=== PATIENT | male | born 1950 | race Caucasian/White ===

== ENCOUNTER → 2021-08-12 | Outpatient (CLI) | payer MEDICARE, OTHER ==
[~2021-08-12] MED LIST: ALEVE PO; ASPI81TA45 PO; ASPI81TA86 PO; CELE100C PO; CELEBREX PO; COUM1TAB17 PO; COUM2.5T17 PO; LISI20TA33 PO; PERC5TAB12 PO; PERCOCET PO; SENO8.6T5 PO; SIMV40TA20 PO; TYLE325T5 PO
== END ==
LOC: M RAD 11:29
PROVIDERS: ATTEND Physician Assistant Medical
DX: M47.817 Spondylosis without myelopathy or radiculopathy, lumbosacral region (principal); M54.50 Low back pain, unspecified

== ENCOUNTER → 2021-10-02 | Outpatient (CLI) | payer MEDICARE, OTHER ==
[~2021-10-02] MED LIST changes: +ASPE4PAD TOP; +ATOR1TAB21; +METH-1165 PO; +NAPR-885; +PRED20TA PO; +TELM1TAB17; +TRAM50TA2 PO
== END ==
LOC: M PLAIMG 08:57
PROVIDERS: ATTEND Family Medicine
DX: M51.36 Other intervertebral disc degeneration, lumbar region (principal)

== ENCOUNTER 2021-10-03 10:08 | Emergency (ER) | payer MEDICARE, OTHER ==
[~2021-10-03] VITALS: Ht 177.8 cm; Wt 109.1 kg
[~2021-10-03 10:08] MED LIST changes: -ASPE4PAD TOP; -ATOR1TAB21; -METH-1165 PO; -NAPR-885; -PRED20TA PO; -TELM1TAB17; -TRAM50TA2 PO
[2021-10-03] MEDS ORDERED: NAPR-885 (10:22)
[2021-10-03] MEDS ORDERED: ATOR1TAB21 (10:22)
[2021-10-03] MEDS ORDERED: TELM1TAB17 (10:22)
[2021-10-03] MEDS ORDERED: methylPREDNISolone 125MG 2ML VIAL IV ONE (12:30)
[2021-10-03] MEDS ORDERED: KETOROLAC 30 MG/ML 1ML VIAL IV ONE (12:30)
[2021-10-03] MEDS ORDERED: NS 1,000 ML IV ONE (12:30)
[2021-10-03] MEDS ORDERED: LIDOCAINE 5% (LIDODERM) PATCH TD ONE (12:30)
[2021-10-03] MEDS ORDERED: diazePAM 10MG/2ML SYRINGE (J3360 PER 5MG) IV ONE ×2 (12:30→14:35)
[2021-10-03 12:49] LABS: BASO % 0.4 % (0.0-1.0); EOS # 0.3 10^3/uL (0.0-0.5); EOS % 3.7 % (0.0-3.0); HEMATOCRIT 40.2 % (42.0-52.0); HEMOGLOBIN 13.8 g/dl (13.5-17.5); LYMPH # 0.9 10^3/uL (1.5-5.0); LYMPH % 11.2 % (24.0-44.0); MEAN CORPUSCULAR HEMOGLOBIN 31.7 pg (27.0-33.0); MEAN CORPUSCULAR HGB CONC 34.3 g/dl (32.0-36.5); MEAN CORPUSCULAR VOLUME 92.4 fl (80.0-96.0); MONO # 0.6 10^3/uL (0.0-0.8); NEUTROPHILS # 5.9 10^3/uL (1.5-8.5); NEUTROPHILS % 76.4 % (36.0-66.0); PLATELET COUNT, AUTOMATED 217 10^3/uL (150-450); RED BLOOD COUNT 4.35 10^6/uL (4.30-6.10); WHITE BLOOD COUNT 7.7 10^3/uL (4.0-10.0)
[2021-10-03 13:13] LABS: BLOOD UREA NITROGEN 23 MG/DL (7-18); CALCIUM LEVEL 9.1 MG/DL (8.8-10.2); CARBON DIOXIDE LEVEL 31 MEQ/L (21-32); CHLORIDE LEVEL 108 MEQ/L (98-107); CREATININE FOR GFR 0.95 MG/DL (0.70-1.30); GLOMERULAR FILTRATION RATE > 60.0 (>42); GLUCOSE, FASTING 91 MG/DL (70-100); POTASSIUM SERUM 3.6 MEQ/L (3.5-5.1); SODIUM LEVEL 142 MEQ/L (136-145)
[2021-10-03] MEDS ORDERED: methocarbamoL 750 MG TAB PO ONE (16:40)
[2021-10-03] MEDS ORDERED: ASPE4PAD TOP (16:40)
[2021-10-03] MEDS ORDERED: METH-1165 PO (16:40)
[2021-10-03] MEDS ORDERED: TRAM50TA2 PO (16:40)
[2021-10-03] MEDS ORDERED: PRED20TA PO (16:41)
[2021-10-03 16:53] VITALS: BP 186/87
[2021-10-04] MEDS ORDERED: **NOTE PATIENT COMMENT** MISC XX ONE (01:00)
== END 2021-10-03 16:53 | disposition home or self-care (01) ==
LOC: M ED 10:08
DX: M54.16 Radiculopathy, lumbar region (principal); I10 Essential (primary) hypertension; Z79.899 Other long term (current) drug therapy; Z79.82 Long term (current) use of aspirin; F17.210 Nicotine dependence, cigarettes, uncomplicated
CPT/HCPCS: 73030; 73060; 73564; 80048; 85025; 93971; 96361; 96374; 96375; 99284; J1885; J2930; J3360

== ENCOUNTER → 2021-10-09 | Outpatient (CLI) | payer MEDICARE, OTHER ==
[~2021-10-09] MED LIST changes: +ASPE4PAD TOP; +ATOR1TAB21; +METH-1165 PO; +NAPR-885; +PRED20TA PO; +TELM1TAB17; +TRAM50TA2 PO
[2021-10-09 14:05] LABS: BASO % 0.4 % (0.0-1.0); EOS # 0.2 10^3/uL (0.0-0.5); EOS % 2.7 % (0.0-3.0); HEMATOCRIT 41.8 % (42.0-52.0); HEMOGLOBIN 14.3 g/dl (13.5-17.5); LYMPH % 11.8 % (24.0-44.0); MEAN CORPUSCULAR HGB CONC 34.2 g/dl (32.0-36.5); MEAN CORPUSCULAR VOLUME 93.5 fl (80.0-96.0); MONO # 0.6 10^3/uL (0.0-0.8); MONO % 7.5 % (2.0-8.0); NEUTROPHILS # 6.2 10^3/uL (1.5-8.5); NEUTROPHILS % 77.1 % (36.0-66.0); PLATELET COUNT, AUTOMATED 240 10^3/uL (150-450); RED BLOOD COUNT 4.47 10^6/uL (4.30-6.10)
[2021-10-09 14:31] LABS: HEMOGLOBIN A1c 5.1 %
[2021-10-09 14:33] LABS: ALBUMIN 3.9 GM/DL (3.2-5.2); ALT/SGPT 35 U/L (12-78); BILIRUBIN,TOTAL 1.7 MG/DL (0.2-1.0); BLOOD UREA NITROGEN 19 MG/DL (7-18); CALCIUM LEVEL 9.7 MG/DL (8.8-10.2); CARBON DIOXIDE LEVEL 32 MEQ/L (21-32); CHLORIDE LEVEL 104 MEQ/L (98-107); CREATININE FOR GFR 0.85 MG/DL (0.70-1.30); GLOMERULAR FILTRATION RATE > 60.0 (>42); GLUCOSE, FASTING 91 MG/DL (70-100); POTASSIUM SERUM 4.3 MEQ/L (3.5-5.1); SODIUM LEVEL 140 MEQ/L (136-145); TOTAL PROTEIN 6.8 GM/DL (6.4-8.2)
[2021-10-09 14:42] LABS: TOTAL 25(OH) VITAMIN D 16.2 NG/ML (30.0-100.0)
== END ==
LOC: M LAB 12:40
PROVIDERS: ATTEND Orthopaedic Surgery
DX: M48.062 Spinal stenosis, lumbar region with neurogenic claudication (principal); Z79.899 Other long term (current) drug therapy

== ENCOUNTER → 2021-10-24 | Outpatient (CLI) | payer MEDICARE, OTHER ==
[~2021-10-24] MED LIST changes: +ATOR1TAB21 PO; +IBUP200C29 PO; +MICA80TA2 PO
== END ==
LOC: M LABSMTC 09:17
PROVIDERS: ATTEND Anesthesiology
DX: Z20.828 Contact with and (suspected) exposure to other viral communicable diseases (principal); Z11.59 Encounter for screening for other viral diseases

== ENCOUNTER 2021-10-29 06:05 | Day surgery (SDC) | payer MEDICARE, OTHER ==
[2021-10-29] VITALS (7 sets, daily range): BP systolic 133–144; BP diastolic 64–86; O2SAT 93
[~2021-10-29] VITALS: Ht 177.8 cm; Wt 107.5 kg
[~2021-10-29 06:05] MED LIST changes: +LIDOCAINE 1% MDV 20ML VIAL SQ PRN; +LR 1,000 ML IV ONE; +PREGABALIN 75 MG CAP(LYRICA) PO ONE; +ceFAZolin SOD 2 GM in IV 1 EA IV ONE; +oxyCODONE 5MG TAB PO ONE
[2021-10-29] MEDS ORDERED: THROMBIN SOLN 20,000 UNITS KIT As Ordered ONE (07:07)
[2021-10-29] MEDS ORDERED: TRANEXAMIC ACID 100 MG/ML 10ML VIAL As Ordered ONE (07:08)
[2021-10-29] MEDS ORDERED: BUPIVACAINE/EPIN 0.5% 30 ML VIAL As Ordered ONE (07:08)
[2021-10-29] MEDS ORDERED: BUPIVACAINE LIPOSOME/PF 1.3% 20ML VIAL (13.3MG/ML)(EXPAREL) As Ordered ONE (07:08)
[2021-10-29] MEDS ORDERED: VANCOMYCIN 1000MG/20ML VIAL As Ordered ONE (07:11)
[2021-10-29] MEDS ORDERED: propofoL 200 MG/20 ML VIAL As Ordered ONE (07:11)
[2021-10-29] MEDS ORDERED: LIDOCAINE 2% 100MG/5ML SDV (FOR ANES.) As Ordered ONE (07:11)
[2021-10-29] MEDS ORDERED: ROCURONIUM BROMIDE 50 MG/5 ML VIAL As Ordered ONE (07:11)
[2021-10-29] MEDS ORDERED: fentaNYL 250 MCG/5 ML INJECTION As Ordered ONE (07:12)
[2021-10-29] MEDS ORDERED: MIDAZOLAM INJ 2MG/2ML VIAL (J2250 PER 1MG) As Ordered ONE (07:12)
[2021-10-29 07:17] LABS: HEMOGLOBIN 13.9 g/dl (13.5-17.5); MEAN CORPUSCULAR HGB CONC 34.8 g/dl (32.0-36.5); MEAN CORPUSCULAR VOLUME 92.2 fl (80.0-96.0); PLATELET COUNT, AUTOMATED 245 10^3/uL (150-450); RED BLOOD COUNT 4.34 10^6/uL (4.30-6.10); WHITE BLOOD COUNT 7.7 10^3/uL (4.0-10.0)
[2021-10-29] MEDS ORDERED: BUPIVACAINE HCL 0.5% 10ML VIAL As Ordered ONE (07:28)
[2021-10-29] MEDS ORDERED: ONDANSETRON 4MG/2ML VIAL As Ordered ONE (09:40)
[2021-10-29] MEDS ORDERED: dexameTHASONE 4 MG/ML 1ML VIAL (J1100 PER 1MG) As Ordered ONE (09:40)
[2021-10-29] MEDS ORDERED: KETOROLAC 60MG 2ML VIAL As Ordered ONE (09:40)
[2021-10-29] MEDS ORDERED: ACETAMINOPHEN 1000MG 100ML IV BTL (OFIRMEV) (J0131 PER 10MG) As Ordered ONE (09:41)
[2021-10-29] MEDS ORDERED: SUGAMMADEX SODIUM 500 MG/5 ML VIAL (BRIDION) As Ordered ONE (09:53)
[2021-10-29] MEDS ORDERED: ACETAMINOPHEN TAB 650MG DOSE (2X325MG) PO PRN (10:25)
[2021-10-29] MEDS ORDERED: PERCOCET 5MG/325MG TAB PO PRN (10:25)
[2021-10-29] MEDS ORDERED: LACTULOSE 20 GM/30 ML SYRUP UD PO PRN (10:30)
[2021-10-29] MEDS ORDERED: MORPHINE 2 MG/ML 1ML VIAL IV PRN (10:30)
[2021-10-29] MEDS ORDERED: oxyCODONE 5MG TAB PO PRN (10:45)
[2021-10-29] MEDS ORDERED: MEPERIDINE INJ 25 MG/ML VIAL (J2175) IV PRN (10:45)
[2021-10-29] MEDS: LR 1,000 ML IV SCH ×2 (10:45→17:08)
[2021-10-29] MEDS ORDERED: fentaNYL 100 MCG/2 ML INJECTION IV PRN (10:45)
[2021-10-29] MEDS ORDERED: ONDANSETRON 4MG/2ML VIAL IV PRN (10:45)
[2021-10-29] MEDS ORDERED: LR 1,000 ML IV SCH (11:20)
[2021-10-29] MEDS: ceFAZolin SOD 2 GM in IV 1 EA IV SCH ×2 (17:09→23:43)
[2021-10-29] MEDS: CelecoXIB (CeleBREX) 100 MG CAP PO SCH (22:16)
[2021-10-30 02:00] VITALS: BP 144/69
[2021-10-30 06:00] VITALS: BP 143/69
[2021-10-30] MEDS: CelecoXIB (CeleBREX) 100 MG CAP PO SCH (08:49)
[2021-10-30] MEDS ORDERED: SENNA 8.6 MG TAB (SENOKOT) PO SCH (09:00)
[2021-10-30 10:00] VITALS: BP 115/72
[2021-10-30 14:00] VITALS: BP 155/66
[2021-10-30] MEDS ORDERED: LACT20EL PO (16:35)
[2021-10-30] MEDS ORDERED: SENN18TA PO (16:35)
[2021-10-30] MEDS ORDERED: ACET1TAB55 PO (16:35)
== END 2021-10-30 17:40 | disposition home or self-care (01) ==
LOC: M SDC 06:05 → M MS5PR 14:10 → M SDC 10-30 17:40
PROVIDERS: ATTEND Orthopaedic Surgery
DX: M48.062 Spinal stenosis, lumbar region with neurogenic claudication (principal); I10 Essential (primary) hypertension; E78.00 Pure hypercholesterolemia, unspecified; Z79.899 Other long term (current) drug therapy
CPT/HCPCS: 36415; 63030; 63035; 76000; 85027; 88304; 88331; 96365; 96366; 97116; 97161; 97530; C9290; J0131; J0690; J1100; J1885; J2250; J2405; J3010; J3370

== ENCOUNTER → 2022-03-22 | Outpatient (REF) | payer MEDICARE, OTHER ==
[~2022-03-22] MED LIST changes: +ACET1TAB55 PO; +LACT20EL PO; -LIDOCAINE 1% MDV 20ML VIAL SQ PRN; -LR 1,000 ML IV ONE; -PREGABALIN 75 MG CAP(LYRICA) PO ONE; +SENN18TA PO; -ceFAZolin SOD 2 GM in IV 1 EA IV ONE; -oxyCODONE 5MG TAB PO ONE
== END ==
LOC: M SFHCDERM 08:31
PROVIDERS: ATTEND Nurse Practitioner Family
DX: R21 Rash and other nonspecific skin eruption (principal)

== ENCOUNTER 2022-04-08 11:53 | Inpatient (IN) | payer MEDICARE, OTHER ==
[~2022-04-08] VITALS: Ht 177.8 cm; Wt 109.3 kg
[2022-04-08] MEDS ORDERED: RA A81CH3 PO (12:06)
[2022-04-08] MEDS ORDERED: CEFEPIME HCL 1 GM in D5W MINI-BAG PLUS 50 ML IV ONE (12:55)
[2022-04-08] MEDS ORDERED: VANCOMYCIN HCL 1,000 MG, VIAL MATE ADAPTER 1 EACH in NS 250 ML IV SCH (12:55)
[2022-04-08] MEDS ORDERED: NS 1,000 ML IV SCH (12:55)
[2022-04-08] MEDS ORDERED: methylPREDNISolone 125MG 2ML VIAL IV ONE ×2 (13:00→16:00)
[2022-04-08] MEDS ORDERED: VANCOMYCIN HCL 2,000 MG, VIAL MATE ADAPTER 1 EACH in NS 250 ML IV STA (13:14)
[2022-04-08] MEDS ORDERED: VANCOMYCIN HCL 1,000 MG, VIAL MATE ADAPTER 1 EACH in NS 250 ML IV ONE ×2 (13:30→14:30)
[2022-04-08 13:56] LABS: BASO % 0.4 % (0.0-1.0); EOS # 1.1 10^3/uL (0.0-0.5); EOS % 14.4 % (0.0-3.0); HEMATOCRIT 38.6 % (42.0-52.0); HEMOGLOBIN 12.2 g/dl (13.5-17.5); LYMPH # 0.6 10^3/uL (1.5-5.0); LYMPH % 8.5 % (24.0-44.0); MEAN CORPUSCULAR HGB CONC 31.6 g/dl (32.0-36.5); MEAN CORPUSCULAR VOLUME 98.2 fl (80.0-96.0); MONO # 0.9 10^3/uL (0.0-0.8); MONO % 12.8 % (2.0-8.0); NEUTROPHILS # 4.6 10^3/uL (1.5-8.5); NEUTROPHILS % 63.6 % (36.0-66.0); PLATELET COUNT, AUTOMATED 200 10^3/uL (150-450); RED BLOOD COUNT 3.93 10^6/uL (4.30-6.10); WHITE BLOOD COUNT 7.3 10^3/uL (4.0-10.0)
[2022-04-08] MEDS ORDERED: TELM1TAB17 PO (14:07)
[2022-04-08] MEDS ORDERED: ATOR1TAB21 PO (14:07)
[2022-04-08] MEDS ORDERED: ACET500T15 PO (14:07)
[2022-04-08] MEDS ORDERED: ASPI81TA26 PO (14:07)
[2022-04-08] MEDS ORDERED: HOME MED LIST COMPLETE! XX SCH (14:10)
[2022-04-08 14:27] LABS: ALBUMIN 2.1 GM/DL (3.2-5.2); ALT/SGPT 19 U/L (12-78); BILIRUBIN,DIRECT 0.3 MG/DL (0.0-0.2); BLOOD UREA NITROGEN 16 MG/DL (7-18); CALCIUM LEVEL 8.1 MG/DL (8.8-10.2); CARBON DIOXIDE LEVEL 21 MEQ/L (21-32); CHLORIDE LEVEL 107 MEQ/L (98-107); GLOMERULAR FILTRATION RATE > 60.0 (>42); GLUCOSE, FASTING 105 MG/DL (70-100); POTASSIUM SERUM 3.8 MEQ/L (3.5-5.1); SODIUM LEVEL 137 MEQ/L (136-145); TOTAL PROTEIN 4.8 GM/DL (6.4-8.2)
[2022-04-08] MEDS ORDERED: LIDOCAINE 1% MDV 20ML VIAL As Ordered ONE (15:27)
[2022-04-08] MEDS ORDERED: ACETAMINOPHEN TAB 650MG DOSE (2X325MG) PO PRN (15:30)
[2022-04-08] MEDS ORDERED: VANCOMYCIN HCL 750 MG, VIAL MATE ADAPTER 1 EACH in NS 250 ML IV SCH (15:40)
[2022-04-08] MEDS: ATORVASTATIN 20 MG TAB PO SCH (19:51)
[2022-04-08] MEDS: NS 1,000 ML IV SCH ×2 (20:20→22:39)
[2022-04-08 22:10] VITALS: BP 154/78
[2022-04-08] MEDS: VANCOMYCIN HCL 1,000 MG, VIAL MATE ADAPTER 1 EACH in D5W 250 ML IV SCH (22:57)
[2022-04-09] MEDS: NS 1,000 ML IV SCH (05:32)
[2022-04-09 06:00] VITALS: BP 150/70
[2022-04-09 06:08] LABS: HEMATOCRIT 36.5 % (42.0-52.0); HEMOGLOBIN 11.9 g/dl (13.5-17.5); MEAN CORPUSCULAR HEMOGLOBIN 30.7 pg (27.0-33.0); MEAN CORPUSCULAR HGB CONC 32.6 g/dl (32.0-36.5); MEAN CORPUSCULAR VOLUME 94.3 fl (80.0-96.0); PLATELET COUNT, AUTOMATED 227 10^3/uL (150-450); RED BLOOD COUNT 3.87 10^6/uL (4.30-6.10); WHITE BLOOD COUNT 4.3 10^3/uL (4.0-10.0)
[2022-04-09] MEDS: VANCOMYCIN HCL 1,000 MG, VIAL MATE ADAPTER 1 EACH in D5W 250 ML IV SCH ×3 (06:35→23:46)
[2022-04-09 06:44] LABS: ALT/SGPT 19 U/L (12-78); BILIRUBIN,TOTAL 0.5 MG/DL (0.2-1.0); BLOOD UREA NITROGEN 16 MG/DL (7-18); CARBON DIOXIDE LEVEL 26 MEQ/L (21-32); CHLORIDE LEVEL 105 MEQ/L (98-107); CREATININE FOR GFR 0.74 MG/DL (0.70-1.30); GLOMERULAR FILTRATION RATE > 60.0 (>42); GLUCOSE, FASTING 139 MG/DL (70-100); MAGNESIUM LEVEL 2.2 MG/DL (1.8-2.4); POTASSIUM SERUM 3.8 MEQ/L (3.5-5.1); SODIUM LEVEL 138 MEQ/L (136-145)
[2022-04-09] MEDS: TELMISARTAN 20 MG TAB PO SCH (08:36)
[2022-04-09] MEDS: ASPIRIN 81MG ENTERIC TABLET PO SCH (08:36)
[2022-04-09] MEDS: methylPREDNISolone 40MG 1ML VIAL IV SCH ×3 (08:37→23:46)
[2022-04-09] MEDS: ENOXAPARIN 40MG/0.4ML SYRINGE (J1650 PER 10MG) SC SCH (08:37)
[2022-04-09 08:46] VITALS: BP 123/57
[2022-04-09 14:00] VITALS: BP 162/87
[2022-04-09] MEDS: CLOBETASOL PROPIONATE EMOLLIENT 0.05% CR 60 GM TOP SCH ×2 (17:00→21:27)
[2022-04-09] MEDS: ATORVASTATIN 20 MG TAB PO SCH (21:27)
[2022-04-09 22:00] VITALS: BP 147/68
[2022-04-10 06:00] VITALS: BP 147/68
[2022-04-10 06:07] LABS: HEMATOCRIT 35.4 % (42.0-52.0); HEMOGLOBIN 11.7 g/dl (13.5-17.5); MEAN CORPUSCULAR HEMOGLOBIN 30.8 pg (27.0-33.0); MEAN CORPUSCULAR HGB CONC 33.1 g/dl (32.0-36.5); MEAN CORPUSCULAR VOLUME 93.2 fl (80.0-96.0); PLATELET COUNT, AUTOMATED 257 10^3/uL (150-450); WHITE BLOOD COUNT 9.1 10^3/uL (4.0-10.0)
[2022-04-10] MEDS: VANCOMYCIN HCL 1,000 MG, VIAL MATE ADAPTER 1 EACH in D5W 250 ML IV SCH (06:07)
[2022-04-10 06:33] LABS: ERYTHROCYTE SEDIMENTATION RATE 58 mm/hr (0-20)
[2022-04-10 06:36] LABS: BLOOD UREA NITROGEN 22 MG/DL (7-18); C REACTIVE PROTEIN QUANTITATIV 7.53 MG/DL (0.00-0.30); CALCIUM LEVEL 8.3 MG/DL (8.8-10.2); CARBON DIOXIDE LEVEL 27 MEQ/L (21-32); CHLORIDE LEVEL 107 MEQ/L (98-107); CREATININE FOR GFR 0.81 MG/DL (0.70-1.30); GLOMERULAR FILTRATION RATE > 60.0 (>42); GLUCOSE, FASTING 133 MG/DL (70-100); POTASSIUM SERUM 3.7 MEQ/L (3.5-5.1); SODIUM LEVEL 142 MEQ/L (136-145)
[2022-04-10] MEDS ORDERED: cefTRIAXone SOD 1 GM in D5W MINI-BAG PLUS 50 ML IV SCH (08:00)
[2022-04-10] MEDS: ASPIRIN 81MG ENTERIC TABLET PO SCH (08:15)
[2022-04-10] MEDS: methylPREDNISolone 40MG 1ML VIAL IV SCH ×2 (08:15→16:33)
[2022-04-10] MEDS: ENOXAPARIN 40MG/0.4ML SYRINGE (J1650 PER 10MG) SC SCH (08:16)
[2022-04-10] MEDS: TELMISARTAN 20 MG TAB PO SCH (08:20)
[2022-04-10] MEDS: CLOBETASOL PROPIONATE EMOLLIENT 0.05% CR 60 GM TOP SCH (08:20)
[2022-04-10] MEDS: TRIAMCINOLONE ACET 0.1% CREAM 80 GM TOP SCH ×4 (09:00→23:21)
[2022-04-10 14:00] VITALS: BP 151/71
[2022-04-10] MEDS ORDERED: HALOPERIDOL 5MG/ML VIAL (J1630 PER 1) IV ONE (15:05)
[2022-04-10] MEDS ORDERED: HALOPERIDOL 5MG/ML VIAL (J1630 PER 1) IV PRN (15:20)
[2022-04-10 20:11] VITALS: BP 149/72
[2022-04-10] MEDS: ATORVASTATIN 20 MG TAB PO SCH (20:35)
[2022-04-10] MEDS ORDERED: KETOROLAC 30 MG/ML 1ML VIAL IV PRN (21:35)
[2022-04-11] MEDS: methylPREDNISolone 40MG 1ML VIAL IV SCH ×4 (00:31→23:56)
[2022-04-11 05:54] VITALS: BP 141/56
[2022-04-11 08:00] VITALS: BP 181/82
[2022-04-11] MEDS: LACTOBACILLUS ACIDOPHILUS CAP (BACID) PO SCH ×2 (09:15→17:08)
[2022-04-11] MEDS: ASPIRIN 81MG ENTERIC TABLET PO SCH (09:16)
[2022-04-11] MEDS: TELMISARTAN 20 MG TAB PO SCH (09:16)
[2022-04-11] MEDS: ENOXAPARIN 40MG/0.4ML SYRINGE (J1650 PER 10MG) SC SCH (09:17)
[2022-04-11] MEDS: TRIAMCINOLONE ACET 0.1% CREAM 80 GM TOP SCH ×2 (09:19→12:48)
[2022-04-11] MEDS: LevoFLOXacin 750 MG TABLET PO SCH (09:33)
[2022-04-11 10:43] VITALS: BP 122/78
[2022-04-11 12:18] VITALS: BP 135/68
[2022-04-11 14:00] VITALS: BP 128/82
[2022-04-11] MEDS: CLOBETASOL PROPIONATE EMOLLIENT 0.05% CR 60 GM TOP SCH ×2 (17:08→20:32)
[2022-04-11] MEDS: ATORVASTATIN 20 MG TAB PO SCH (20:31)
[2022-04-11] MEDS ORDERED: RAMELTEON 8 MG TAB (ROZEREM) PO SCH (21:00)
[2022-04-11 22:00] VITALS: BP 145/78
[2022-04-12] MEDS: LevoFLOXacin 750 MG TABLET PO SCH (05:23)
[2022-04-12 06:15] VITALS: BP 157/63
[2022-04-12 06:38] LABS: HEMATOCRIT 37.4 % (42.0-52.0); HEMOGLOBIN 12.5 g/dl (13.5-17.5); MEAN CORPUSCULAR HEMOGLOBIN 31.3 pg (27.0-33.0); MEAN CORPUSCULAR HGB CONC 33.4 g/dl (32.0-36.5); MEAN CORPUSCULAR VOLUME 93.5 fl (80.0-96.0); PLATELET COUNT, AUTOMATED 192 10^3/uL (150-450); WHITE BLOOD COUNT 8.8 10^3/uL (4.0-10.0)
[2022-04-12 07:08] LABS: BLOOD UREA NITROGEN 30 MG/DL (7-18); CALCIUM LEVEL 8.6 MG/DL (8.8-10.2); CARBON DIOXIDE LEVEL 27 MEQ/L (21-32); CHLORIDE LEVEL 109 MEQ/L (98-107); CREATININE FOR GFR 0.89 MG/DL (0.70-1.30); GLOMERULAR FILTRATION RATE > 60.0 (>42); GLUCOSE, FASTING 109 MG/DL (70-100); POTASSIUM SERUM 4.4 MEQ/L (3.5-5.1); SODIUM LEVEL 147 MEQ/L (136-145)
[2022-04-12] MEDS: ASPIRIN 81MG ENTERIC TABLET PO SCH (08:49)
[2022-04-12] MEDS: CLOBETASOL PROPIONATE EMOLLIENT 0.05% CR 60 GM TOP SCH (08:49)
[2022-04-12] MEDS: ENOXAPARIN 40MG/0.4ML SYRINGE (J1650 PER 10MG) SC SCH (08:49)
[2022-04-12] MEDS: LACTOBACILLUS ACIDOPHILUS CAP (BACID) PO SCH (08:49)
[2022-04-12] MEDS ORDERED: predniSONE 20 MG TAB PO SCH (09:00)
[2022-04-12] MEDS: TELMISARTAN 20 MG TAB PO SCH (10:01)
[2022-04-12 10:03] VITALS: BP 142/62
[2022-04-12] MEDS ORDERED: PRED20TA PO (10:22)
[2022-04-12] MEDS ORDERED: RISATAB3 PO (10:22)
[2022-04-12] MEDS ORDERED: ACET1TAB55 PO (10:22)
[2022-04-12] MEDS ORDERED: ROZE8TAB16 PO (10:22)
[2022-04-12] MEDS ORDERED: LEVO1TAB40 PO (10:22)
[2022-04-12] MEDS ORDERED: TRIA1OI80 TOP (10:22)
== END 2022-04-12 11:59 | disposition home or self-care (01) | DRG 596 ==
LOC: M ED 11:53 → M ED INP 15:28 → ENRESERV 20:49 → M MSPAV 22:10
PROVIDERS: ADMIT Family Medicine; ATTEND Internal Medicine
DX: L12.0 Bullous pemphigoid (principal); L03.90 Cellulitis, unspecified; I10 Essential (primary) hypertension; E78.5 Hyperlipidemia, unspecified; R44.1 Visual hallucinations; Z91.14 Patient's other noncompliance with medication regimen; Z72.820 Sleep deprivation; Z79.82 Long term (current) use of aspirin; Z79.899 Other long term (current) drug therapy

== ENCOUNTER → 2022-04-15 | Outpatient (CLI) | payer MEDICARE, OTHER ==
[~2022-04-15] MED LIST changes: +ACET500T15 PO; +ASPI81TA26 PO; +LEVO1TAB40 PO; +RA A81CH3 PO; +RISATAB3 PO; +ROZE8TAB16 PO; +TELM1TAB17 PO; +TRIA1OI80 TOP
[2022-04-15 16:06] LABS: HEPATITIS B CORE ANTIBODY IGM NEGATIVE (NEGATIVE); HEPATITIS B SURFACE ANTIGEN NEGATIVE (NEGATIVE); HEPATITIS C VIRUS ABY INDEX < 0.0 INDEX (<0.8); HIV 1&2 SCREEN CENTAUR NEGATIVE (NEGATIVE)
== END ==
LOC: M LAB 09:19
PROVIDERS: ATTEND Nurse Practitioner Family
DX: L12.0 Bullous pemphigoid (principal)

== ENCOUNTER → 2022-06-03 | Outpatient (CLI) | payer MEDICARE, OTHER ==
[2022-06-03 10:25] LABS: HEMATOCRIT 40.7 % (42.0-52.0); HEMOGLOBIN 13.6 g/dl (13.5-17.5); MEAN CORPUSCULAR HEMOGLOBIN 32.4 pg (27.0-33.0); MEAN CORPUSCULAR HGB CONC 33.4 g/dl (32.0-36.5); MEAN CORPUSCULAR VOLUME 96.9 fl (80.0-96.0); PLATELET COUNT, AUTOMATED 195 10^3/uL (150-450); WHITE BLOOD COUNT 6.9 10^3/uL (4.0-10.0)
[2022-06-03 16:19] LABS: ALBUMIN 4.1 G/DL (3.2-5.2); CARBON DIOXIDE LEVEL 28 MMOL/L (20-31); CHLORIDE LEVEL 101 MMOL/L (98-107); POTASSIUM SERUM 4.2 MMOL/L (3.5-5.1); SODIUM LEVEL 141 MMOL/L (136-145)
[2022-06-03 16:24] LABS: ALKALINE PHOSPHATASE 67 U/L (46-116)
[2022-06-03 16:25] LABS: BLOOD UREA NITROGEN 23 MG/DL (9-23); CALCIUM LEVEL 9.2 MG/DL (8.3-10.6); GLUCOSE, FASTING 78 MG/DL (74-106)
[2022-06-03 16:27] LABS: ALT/SGPT 27 U/L (7.0-40); AST/SGOT 22 U/L (<34); BILIRUBIN,TOTAL 1.9 MG/DL (0.3-1.2); CREATININE FOR GFR 0.79 MG/DL (0.70-1.30); GLOMERULAR FILTRATION RATE > 60.0 (>42); TOTAL PROTEIN 6.3 G/DL (5.7-8.2)
== END ==
LOC: M WUC 08:26
PROVIDERS: ATTEND Dermatology
DX: L12.0 Bullous pemphigoid (principal)

== ENCOUNTER → 2022-09-28 | Outpatient (CLI) | payer MEDICARE, OTHER ==
[2022-09-28 10:35] LABS: HEMOGLOBIN 14.5 g/dl (13.5-17.5); MEAN CORPUSCULAR HEMOGLOBIN 31.7 pg (27.0-33.0); MEAN CORPUSCULAR HGB CONC 33.7 g/dl (32.0-36.5); MEAN CORPUSCULAR VOLUME 93.9 fl (80.0-96.0); PLATELET COUNT, AUTOMATED 187 10^3/uL (150-450); RED BLOOD COUNT 4.58 10^6/uL (4.30-6.10); WHITE BLOOD COUNT 5.5 10^3/uL (4.0-10.0)
[2022-09-28 11:06] LABS: ALBUMIN 3.7 G/DL (3.2-5.2); ALKALINE PHOSPHATASE 75 U/L (46-116); ALT/SGPT 21 U/L (7.0-40); AST/SGOT 19 U/L (<34); BILIRUBIN,TOTAL 1.2 MG/DL (0.3-1.2); BLOOD UREA NITROGEN 15 MG/DL (9-23); CALCIUM LEVEL 8.8 MG/DL (8.3-10.6); CARBON DIOXIDE LEVEL 30 MMOL/L (20-31); CHLORIDE LEVEL 107 MMOL/L (98-107); CREATININE FOR GFR 0.87 MG/DL (0.70-1.30); GLOMERULAR FILTRATION RATE > 60.0 (>42); GLUCOSE, FASTING 89 MG/DL (74-106); POTASSIUM SERUM 4.2 MMOL/L (3.5-5.1); SODIUM LEVEL 143 MMOL/L (136-145); TOTAL PROTEIN 6.2 G/DL (5.7-8.2)
== END ==
LOC: M LAB 10:04
PROVIDERS: ATTEND Nurse Practitioner Family
DX: Z79.899 Other long term (current) drug therapy (principal)

== ENCOUNTER 2023-07-09 06:06 | Observation (INO) | payer MEDICARE, OTHER ==
[~2023-07-09] VITALS: Ht 180.3 cm; Wt 113.0 kg
[~2023-07-09 06:06] MED LIST changes: +ASPI-663 PO; +DUPI300I SC; -RA A81CH3 PO; +SENN-111 PO; -SENN18TA PO; +ceFAZolin SOD 2 GM in IV 1 EA IV ONE
[2023-07-09] MEDS ORDERED: LIDOCAINE W/EPINEPHRINE 1% 20ML VIAL As Ordered ONE (07:10)
[2023-07-09] MEDS ORDERED: VANCOMYCIN 1000MG/20ML VIAL As Ordered ONE ×2 (07:10→07:33)
[2023-07-09] MEDS ORDERED: TRANEXAMIC ACID 100 MG/ML 10ML VIAL As Ordered ONE ×2 (07:10→07:33)
[2023-07-09] MEDS ORDERED: MIDAZOLAM INJ 2MG/2ML VIAL As Ordered ONE (07:15)
[2023-07-09] MEDS ORDERED: fentaNYL 100 MCG/2 ML INJECTION As Ordered ONE (07:15)
[2023-07-09] MEDS ORDERED: propofoL 200 MG/20 ML VIAL As Ordered ONE (07:16)
[2023-07-09] MEDS ORDERED: LIDOCAINE 2% 100MG/5ML SDV (FOR ANES.) As Ordered ONE (07:16)
[2023-07-09] MEDS ORDERED: ROCURONIUM BROMIDE 50MG/5ML VIAL As Ordered ONE ×2 (07:16→09:03)
[2023-07-09] MEDS ORDERED: ONDANSETRON 4MG 2ML VIAL As Ordered ONE (07:16)
[2023-07-09] MEDS ORDERED: ROPIvacaine 0.5% 30ML VIAL PN ONE (07:20)
[2023-07-09] MEDS ORDERED: fentaNYL 100 MCG/2 ML INJECTION IV PRN (07:20)
[2023-07-09] MEDS ORDERED: LIDOCAINE 1% SDV 5ML VIAL As Ordered ONE (07:47)
[2023-07-09] MEDS: MIDAZOLAM INJ 2MG/2ML VIAL IV PRN ×2 (07:50→07:52)
[2023-07-09] MEDS ORDERED: LIDOCAINE 1% SDV 30ML VIAL SC SCH (08:20)
[2023-07-09] MEDS ORDERED: ePHEDrine SULFATE 25 MG/5 ML(5MG/ML) SYRINGE As Ordered ONE ×2 (08:20→08:50)
[2023-07-09] MEDS ORDERED: ACETAMINOPHEN 1000MG 100ML IV BAG As Ordered ONE (09:06)
[2023-07-09] MEDS ORDERED: SUGAMMADEX SODIUM 500 MG/5 ML VIAL (BRIDION) As Ordered ONE (09:07)
[2023-07-09] MEDS ORDERED: ONDANSETRON 4MG 2ML VIAL IV PRN (10:45)
[2023-07-09] MEDS ORDERED: oxyCODONE 5MG TAB PO PRN (10:45)
[2023-07-09] MEDS ORDERED: SENNA 8.6 MG TAB (SENOKOT) PO PRN (10:45)
[2023-07-09] MEDS ORDERED: IBUPROFEN 600MG TAB PO PRN (10:45)
[2023-07-09] MEDS ORDERED: ACETAMINOPHEN TAB 650MG DOSE (2X325MG) PO PRN (10:45)
[2023-07-09] MEDS ORDERED: MORPHINE 4 MG/ML 1ML VIAL IV PRN (10:45)
[2023-07-09 13:29] VITALS: BP 131/78; TEMP 97.3; O2SAT 97
[2023-07-09 14:30] VITALS: BP 134/79
[2023-07-09] MEDS: ceFAZolin SOD 1 GM in D5W MINI-BAG PLUS 50 ML IV SCH ×2 (16:46→23:27)
[2023-07-09 19:49] LABS: BLOOD UREA NITROGEN 20 MG/DL (9-23); CALCIUM LEVEL 8.9 MG/DL (8.3-10.6); CARBON DIOXIDE LEVEL 26 MMOL/L (20-31); CHLORIDE LEVEL 103 MMOL/L (98-107); CREATININE FOR GFR 0.82 MG/DL (0.70-1.30); GLOMERULAR FILTRATION RATE > 60.0 (>42); GLUCOSE, FASTING 132 MG/DL (74-106); POTASSIUM SERUM 4.3 MMOL/L (3.5-5.1); SODIUM LEVEL 137 MMOL/L (136-145)
[2023-07-09 19:53] LABS: BASO % 0.1 % (0.0-1.0); HEMATOCRIT 39.5 % (42.0-52.0); HEMOGLOBIN 13.6 g/dl (13.5-17.5); LYMPH # 0.4 10^3/uL (1.5-5.0); LYMPH % 3.1 % (24.0-44.0); MEAN CORPUSCULAR HEMOGLOBIN 31.7 pg (27.0-33.0); MEAN CORPUSCULAR HGB CONC 34.4 g/dl (32.0-36.5); MEAN CORPUSCULAR VOLUME 92.1 fl (80.0-96.0); MONO # 0.5 10^3/uL (0.0-0.8); MONO % 3.9 % (2.0-8.0); NEUTROPHILS # 10.9 10^3/uL (1.5-8.5); NEUTROPHILS % 92.6 % (36.0-66.0); PLATELET COUNT, AUTOMATED 195 10^3/uL (150-450); RED BLOOD COUNT 4.29 10^6/uL (4.30-6.10); WHITE BLOOD COUNT 11.8 10^3/uL (4.0-10.0)
[2023-07-09 20:10] VITALS: BP 134/75; TEMP 97.5; O2SAT 93
[2023-07-09] MEDS: DOCUSATE SODIUM 100MG CAPSULE PO SCH (20:19)
[2023-07-09] MEDS ORDERED: ATORVASTATIN 20 MG TAB PO SCH (21:00)
[2023-07-10 05:42] VITALS: BP 138/107; TEMP 97.5; O2SAT 92
[2023-07-10 06:05] LABS: HEMATOCRIT 37.5 % (42.0-52.0); MEAN CORPUSCULAR HEMOGLOBIN 32.7 pg (27.0-33.0); MEAN CORPUSCULAR HGB CONC 34.7 g/dl (32.0-36.5); MEAN CORPUSCULAR VOLUME 94.2 fl (80.0-96.0); PLATELET COUNT, AUTOMATED 195 10^3/uL (150-450); RED BLOOD COUNT 3.98 10^6/uL (4.30-6.10); WHITE BLOOD COUNT 9.5 10^3/uL (4.0-10.0)
[2023-07-10 06:33] LABS: BLOOD UREA NITROGEN 22 MG/DL (9-23); CALCIUM LEVEL 8.6 MG/DL (8.3-10.6); CARBON DIOXIDE LEVEL 29 MMOL/L (20-31); CHLORIDE LEVEL 103 MMOL/L (98-107); CREATININE FOR GFR 0.82 MG/DL (0.70-1.30); GLOMERULAR FILTRATION RATE > 60.0 (>42); GLUCOSE, FASTING 106 MG/DL (74-106); MAGNESIUM LEVEL 2.1 MG/DL (1.8-2.4); POTASSIUM SERUM 3.8 MMOL/L (3.5-5.1); SODIUM LEVEL 138 MMOL/L (136-145)
[2023-07-10 07:02] VITALS: O2SAT 94
[2023-07-10] MEDS: DOCUSATE SODIUM 100MG CAPSULE PO SCH (09:06)
[2023-07-10] MEDS: ceFAZolin SOD 1 GM in D5W MINI-BAG PLUS 50 ML IV SCH (09:07)
[2023-07-10] MEDS ORDERED: OXYC1TAB23 PO (10:37)
== END 2023-07-10 14:00 | disposition home or self-care (01) ==
LOC: M SDC 06:06 → M RR INP 06:07 → M MS5PR 13:20
PROVIDERS: ADMIT Student in an Organized Health Care Education/Training Program; ATTEND Orthopaedic Surgery Hand Surgery
DX: M19.011 Primary osteoarthritis, right shoulder (principal); I10 Essential (primary) hypertension; E78.5 Hyperlipidemia, unspecified; M10.9 Gout, unspecified; M54.9 Dorsalgia, unspecified; G89.29 Other chronic pain; Z96.653 Presence of artificial knee joint, bilateral; Z87.891 Personal history of nicotine dependence; Z20.822 Contact with and (suspected) exposure to COVID-19; Z79.899 Other long term (current) drug therapy; Z79.82 Long term (current) use of aspirin
CPT/HCPCS: 23472; 36415; 64415; 73020; 80048; 83735; 85025; 85027; 88300; 96374; 96376; 97116; 97161; 97165; 97530; 97535; C1713; C1773; C1776; G0378; J0131; J0690; J1100; J2250; J2405; J3010; J3370

== ENCOUNTER → 2023-07-21 | Outpatient (CLI) | payer MEDICARE, OTHER ==
[~2023-07-21] MED LIST changes: +OXYC1TAB23 PO; -ceFAZolin SOD 2 GM in IV 1 EA IV ONE
== END ==
LOC: M SOG 08:11
PROVIDERS: ATTEND Physician Assistant
DX: Z53.9 Procedure and treatment not carried out, unspecified reason (principal)

== ENCOUNTER → 2023-07-21 | Outpatient (CLI) | payer MEDICARE, OTHER | LOC: M SOG 11:25 | PROVIDERS: ATTEND Orthopaedic Surgery | DX: Z47.1 Aftercare following joint replacement surgery (principal); M25.511 Pain in right shoulder; Z96.611 Presence of right artificial shoulder joint ==

== ENCOUNTER → 2023-10-30 | Outpatient (CLI) | payer MEDICARE, OTHER | LOC: M SOG 09:11 | PROVIDERS: ATTEND Physician Assistant | DX: Z96.611 Presence of right artificial shoulder joint (principal) ==

== ENCOUNTER → 2024-06-02 | Outpatient (CLI) | payer MEDICARE, OTHER ==
[~2024-06-02] MED LIST changes: -SENN-111 PO; +SENN-165 PO
[2024-06-02 12:39] LABS: THYROID STIMULATING HORMONE 2.209 uIU/ML (0.55-4.78)
[2024-06-02 12:40] LABS: FOLATE 12.87 NG/ML (>5.4)
[2024-06-08 16:47] LABS: VITAMIN B6,PYRIDOXAL PHOSPHATE 10.8 ng/mL (2.1-21.7)
[2024-06-08 17:18] LABS: VITAMIN E(ALPHA TOCOPHEROL) 9.6 mg/L (5.7-19.9); VITAMIN E(GAMMA TOCOPHEROL) 1.5 mg/L (<=4.3)
== END ==
LOC: M LAB 10:59
PROVIDERS: ATTEND Psychiatry & Neurology Neurology
DX: E53.8 Deficiency of other specified B group vitamins (principal); E56.0 Deficiency of vitamin E; R41.3 Other amnesia